=== PATIENT | female | born 1990 | race African-American/Black ===

== ENCOUNTER 2017-03-04 07:43 | Inpatient (IN) | payer OTHER ==
[~2017-03-04] VITALS: Ht 167.6 cm; Wt 60.8 kg
--- NOTE | ~2017-03-04 | DS ---
Unit #: [id number] #: [id number] Patient: OLIVIA HERNANDEZ [id number] [address] [address] [id number] I MR#: [id number] NAME: OLIVIA HERNANDEZ ROOM: [facility] Age: 26 Sex: F Admission Date: 03/04/2017 : 1990 Discharge Date: 03/07/2017 Attending Physician: Elias Robertson M.D. Primary Care Physician: No Primary Care Physician DISCHARGE SUMMARY PRINCIPAL DIAGNOSES ON DISCHARGE 1. Cannabinoid hyperemesis. 2. Bacterial vaginosis. 3. Gastritis. SECONDARY DIAGNOSES 1. Bradycardia. 2. Nausea and vomiting. 3. Marijuana and tobacco abuse. HISTORY OF PRESENT ILLNESS AND BRIEF HOSPITAL COURSE Ms. Hernandez is a 26-year-old female with no significant past medical history who presented to the emergency room because of a history of nausea, vomiting and approximately 10 bouts of nonbloody emesis within the previous 24 hours. She mentioned, also, diffuse abdominal pain, cramping in nature, only relieved by taking hot showers. In the emergency room she was noted, also, to have a blood pressure of 98/80 with a heart rate of 40. Her laboratory studies were positive for bacterial vaginosis. The patient was admitted to the hospital and started on IV fluids and antiemetics. Zofran did not seem to help, so her antiemetic regimen was changed to Phenergan. Her mental status initially was a little decreased, and she received Narcan in the emergency room. Her urine drug screen was positive for marijuana. Cardiology was consulted regarding the patient's bradycardia, and a two-D echo was obtained that showed normal valves and normal systolic and diastolic function. She was placed, for a short period of time, on a dopamine drip at a low rate, but it was rapidly discontinued. GI was consulted, and the patient underwent an EGD for her intractable nausea, vomiting and abdominal pain. It only revealed mild gastritis. Biopsies were done, but the results are pending at this time. Other negative tests included a beta HCG, and hemoglobin A1C was normal. Troponins remained negative. A CT of the head was unremarkable. Today the patient feels much better. She is able to tolerate p.o. She did receive a dose of Phenergan p.o. She was started on Flagyl for the bacterial vaginosis and was kept on PPIs during the hospitalization. The patient is considered to be stable enough to be discharged home today. Her telemetry revealed only sinus bradycardia, asymptomatic. Unit #: [id number] #: [id number] Patient: OLIVIA HERNANDEZ DISPOSITION The patient is being discharged home. CONDITION Improved. DISCHARGE DIET Regular diet, small frequent meals. ACTIVITY As tolerated. Okay to resume work in 2 days. DISCHARGE INSTRUCTIONS The patient was instructed to abstain from alcohol and marijuana. It was explained to her that the likely etiology of her symptoms is marijuana related and that it will only improve with complete abstinence. FOLLOWUP APPOINTMENTS Follow up with primary care physician in 1-2 weeks. Dictated byRachel Murray/bryanna TD: 03/08/2017 10:27 JOB #: [id number] DISCHARGE SUMMARY Page 1 of 1 X X DISCHARGE SUMMARY
--- NOTE | ~2017-03-04 | CR72 ---
[facility] A Service of [facility] & [facility] RADIOLOGY TEXT RESULTS PATIENT: OLIVIA HERNANDEZ LOCATION: [facility] [id number] : [birth year] UNIT #: [id number] AGE: [address]: Christine Dumont MD SEX: F ORDER DR: [id number] [facility] [address] [facility]. [place], [place] [address] [id number] I MR#: [id number] #: [id number] NAME: OLIVIA HERNANDEZ : 1990 SEX: F STUDY DATE/TIME: 03/04/2017 10:03 UNIT: [facility] ROOM: [id number] STUDY DESCRIPTION: CR Chest Single View Portable Attending Physician: Christine Dumont M.D. Ordering Physician: Darius Bowen M.D. Primary Care Physician: Primary Care Physician No MEDICAL IMAGING REPORT This report is preliminary unless electronic signature is present EXAM Chest portable 03/04/2017 1003 hours HISTORY 26-year-old woman with altered mental status and nausea and vomiting since yesterday. COMPARISON None. FINDINGS Portable upright chest is slightly rotated. Heart size is normal. There is mild perihilar vascular crowding but no definite acute pulmonary density or pleural effusion. There is jewelry at the right nipple. There is a linear metallic density projecting over the left chest/upper abdomen measuring 1.9 cm which could represent jewelry at the left nipple or other foreign body. IMPRESSION 1. Mild perihilar vascular crowding but no acute cardiopulmonary findings. 2. There is definite jewelry at the right nipple. There is a 1.9 cm linear metallic density projecting over the left breast/left upper quadrant of the abdomen which could represent jewelry at the left nipple or other foreign body. Correlate with physical exam. STAT * RESULT Dictated by... Marie Kiran M.D. THIS IS AN ELECTRONICALLY VERIFIED REPORT STS. [facility] A Service of [facility] & [facility] RADIOLOGY TEXT RESULTS PATIENT: OLIVIA HERNANDEZ LOCATION: [facility] [id number] : [birth year] UNIT #: [id number] AGE: [address]: Christine Dumont MD SEX: F ORDER DR: Marie Kiran M.D. at 03/04/2017 2:31 PM SHAZIA/christen TD: 03/04/2017 10:55 JOB #: [id number] MEDICAL IMAGING REPORT Page 1 of 1 COPY
--- NOTE | ~2017-03-04 | OR ---
Unit #: [id number] #: [id number] Patient: OLIVIA HERNANDEZ [id number] [address] [address] [id number] I MR#: [id number] NAME: OLIVIA HERNANDEZ ROOM: [facility] Date of Procedure: 03/05/2017 Admission Date: 03/04/2017 Surgeon: Rachid Mccoy M.D. : 1990 Attending Physician: Elias Robertson M.D. Primary Care Physician: Primary Care Physician No OPERATIVE REPORT JOB NOTE: CC: PRIMARY CARE PHYSICIAN PROCEDURE PERFORMED Esophagogastroduodenoscopy with biopsy. INDICATIONS FOR PROCEDURE Persistent nausea and vomiting, epigastric pain, undergoing evaluation with upper endoscopy. MEDICATIONS Monitored anesthesia. POSTOPERATIVE FINDINGS 1. Normal esophagus. 2. Mild gastritis, biopsies taken. 3. Normal duodenum and distal duodenum. PLAN Continue PPIs. Symptomatic treatment for now. DESCRIPTION OF PROCEDURE The patient was explained of the procedure, risks, and benefits along with the risks and benefits of anesthesia. She was brought to the endoscopy room. Propofol anesthesia was given. Bite block was placed. The scope was passed down the mouth into esophagus, stomach, duodenum, and distal duodenum. Findings as described. Biopsies taken. Gently, I pulled it out of the patient's mouth. She tolerated it well. Dictated by... Rachel Pritchett/aaron TD: 03/05/2017 20:06 JOB #: [id number] Unit #: [id number] #: [id number] Patient: OLIVIA HERNANDEZ OPERATIVE REPORT Page 1 of 1 X Rachid Mccoy MD X PROCEDURE OPERATIVE NOTE
--- NOTE | ~2017-03-04 | HP ---
Unit #: [id number] #: [id number] Patient: OLIVIA HERNANDEZ [id number] [place], [place] [address] [id number] I MR#: [id number] NAME: OLIVIA HERNANDEZ ROOM: [id number] Age: 26 Sex: F Admission Date: 03/04/2017 : 1990 Attending Physician: Christine Dumont M.D. Primary Care Physician: No Primary Care Physician HISTORY AND PHYSICAL CHIEF COMPLAINT Nausea and vomiting. HISTORY OF PRESENT ILLNESS The patient is a 26-year-old female with no significant past medical history who presented to the emergency department for evaluation of the above. The patient states that she has had a one to two day history of nausea, vomiting, and diarrhea. She states that she has had more than ten bouts of nonbloody emesis within the past 24 hours and one bout of nonbloody diarrhea. She states that she has had abdominal pain that is "everywhere." She describes it as "cramping." She denies any fever, no cough or cold symptoms. No chest pain. No palpitations. No urinary symptoms. She denies any vaginal discharge. In the emergency department initial pulse and blood pressure were 40 and 98/[address] of the head showed nothing acute. Laboratory notable for vaginosis panel being positive for BV. EKG showed sinus bradycardia with a rate of 41 BPM. She is being admitted to [facility] for evaluation and further treatment. The patient received 2 mg of Narcan in the emergency department, as well as 1 L of normal saline, 4 mg of Zofran. She took Phenergan prior to arrival. PAST MEDICAL HISTORY The patient denies hospitalization. PAST SURGICAL HISTORY Dental implants. SOCIAL HISTORY The patient lives with her mother. She smokes a pack of cigarettes daily. She denies alcohol or illicit drug use. She works as a printing sales representative. FAMILY HISTORY Notable for her mother being healthy. The patient denies any family history of diabetes. ALLERGIES No known allergies. HOME MEDICATIONS Promethazine. Unit #: [id number] #: [id number] Patient: OLIVIA HERNANDEZ REVIEW OF SYSTEMS A complete review of systems is negative except as indicated in the HPI. PHYSICAL EXAMINATION VITAL SIGNS: Temperature is 98.4, pulse 40, respirations 14, blood pressure 98/80, oxygen saturation 100% on room air. GENERAL: The patient is an -Guyanese female who is sleeping but wakes to voice. HEENT: Head is atraumatic. Mucous membranes are dry. NECK: Supple. Trachea is midline. CARDIAC: Bradycardic in the 40s. LUNGS: Clear to auscultation bilaterally with no increased work of breathing. ABDOMEN: Soft, nontender with bowel sounds present in all four quadrants. EXTREMITIES: Nontender with no pedal edema. NEUROLOGIC: The patient is sleeping but wakes to voice. She is moving all extremities. PSYCH: Mood and affect are normal. The patient is cooperative. SKIN: Skin of examined areas is warm and dry. DIAGNOSTIC STUDIES CARDIOLOGY STUDIES: EKG shows marked sinus bradycardia with a rate of 41 BPM. IMAGING STUDIES: CT of the head shows nothing acute. Chest x-ray shows mild perivascular crowding but no acute cardiopulmonary findings. LABORATORY STUDIES: Vaginosis panel is positive for BV. Comprehensive metabolic panel notable for CO2 of 20, glucose 128, lipase was 26, urine tox screen positive for marijuana. Urinalysis notable for trace leukocyte esterase, trace protein, 2+ ketone. Troponin is less than 0.05. Complete blood count is completely normal. ASSESSMENT The patient is a 26 year old female with: 1. Altered mental status. The patient was initially lethargic, now she is oriented. She did take Phenergan prior to arrival. 2. Bradycardia. The patient's heart rate continues to be in the 40s after 2 L of normal saline. 3. Nausea and vomiting. 4. Bacterial vaginosis. 5. Tobacco abuse. PLANS 1. Admit to intermediate level. 2. Advance diet to clear liquids at tolerated. 3. Normal saline at 125 mL an hear. 4. Start dopamine drip at 2 mcg/kg/minute. 5. Serial cardiac enzymes. 6. 2D echo. 7. TSH. 8. Neuro checks. 9. P.r.n. Zofran. 10. SCDs for DVT prophylaxis. 11. Flagyl for bacterial vaginosis. 12. Repeat labs in the morning. Unit #: [id number] #: [id number] Patient: MARYOLIVIA ALEXIA 13. SCDs for DVT prophylaxis. 14. Additional workup and consultants based on above. 1. Dictated by Rachel Salcedo/wu TD: 03/04/2017 12:16 JOB #: [id number] HISTORY AND PHYSICAL Page 1 of 1 X Christine Dumont MD HISTORY AND PHYSICAL
--- NOTE | ~2017-03-04 | CT71 ---
[facility] A Service of [facility] RADIOLOGY TEXT RESULTS PATIENT: OLIVIA HERNANDEZ LOCATION: [facility] [id number] : [birth year] UNIT #: [id number] AGE: [address]: Christine Dumont MD SEX: F ORDER DR: [id number] [facility] [place] [facility]. [place], [place] [address] [id number] I MR#: [id number] Acc #: [id number] NAME: OLIVAI HERNANDEZ : 1990 SEX: F STUDY DATE/TIME: 03/04/2017 9:15 UNIT: [facility] ROOM: 15002 STUDY DESCRIPTION: CT Head Wo Contrast Attending Physician: Christine Dumont M.D. Ordering Physician: Darius Bowen M.D. Primary Care Physician: Primary Care Physician No MEDICAL IMAGING REPORT This report is preliminary unless electronic signature is present EXAM Head CT without HISTORY Nausea and vomiting since yesterday with lethargy and difficulty waking up; no history of cancer. No history of trauma. TECHNIQUE Routine noncontrast head CT is reviewed. This CT exam was performed with one or more of the following radiation dose reduction techniques: automatic exposure control, adjustment of mA and/or kV according to patient size, and iterative reconstruction. COMPARISON There is no previous. FINDINGS There is no displaced calvarial fracture. The visualized mastoid air cells and paranasal sinuses are clear. There is artifact from a piercing above the left brow. There is also mild motion artifact. Allowing for this, no acute intracranial hemorrhage or extraaxial fluid collection is suspected. The basilar cisterns are patent. Pitts-white junction is relatively well-maintained. There is no intracranial mass effect. No acute cortical infarct is suspected. If there is clinical concern for acute CVA followup imaging would be indicated preferably with MRI. If there is concern for meningitis this diagnosis is best pursued with CSF sampling. IMPRESSION Allowing for some metal artifact and motion artifact essentially negative noncontrast head CT. Dictated by... [facility] A Service of [facility] RADIOLOGY TEXT RESULTS PATIENT: OLIVIA HERNANDEZ LOCATION: [facility] [id number] : [birth year] UNIT #: [id number] AGE: [address]: Christine Dumont MD SEX: F ORDER DR: Denisse Ayers M.D. THIS IS AN ELECTRONICALLY VERIFIED REPORT Denisse Ayers M.D. at 03/04/2017 5:10 PM SAC/to TD: 03/04/2017 15:11 JOB #: [id number] MEDICAL IMAGING REPORT Page 1 of 1 COPY
--- NOTE | ~2017-03-04 | EKG ---
PATIENT: OLIVIA HERNANDEZ UNIT #: [id number] Ventricular Rate: 41 BPM Atrial Rate: 41 BPM P-R Interval: 134 ms QRS Duration: 70 ms Q-T Interval: 520 ms QTC Calculation(Bezet): 429 ms P [place]: -21 degrees Calculated R [place]: 0 degrees Calculated T [place]: -12 degrees Diagnosis Line: Marked sinus bradycardia Diagnosis Line: Low voltage QRS Diagnosis Line: Nonspecific T wave abnormality Diagnosis Line: Abnormal ECG Diagnosis Line: No previous ECGs available Diagnosis Line: Confirmed by NAYA QUINTERO MD ([id number]) on Diagnosis Line: 03/05/2017 7:32:14 AM INTERPRETING MD: LEON CLARKE
--- NOTE | ~2017-03-04 | EKG ---
PATIENT: OLIVIA HERNANDEZ UNIT #: [id number] Ventricular Rate: 44 BPM Atrial Rate: 44 BPM P-R Interval: 140 ms QRS Duration: 86 ms Q-T Interval: 472 ms QTC Calculation(Bezet): 403 ms P [place]: 68 degrees Calculated R [place]: 48 degrees Calculated T [place]: 40 degrees Diagnosis Line: Marked sinus bradycardia Diagnosis Line: Abnormal ECG Diagnosis Line: When compared with ECG of 04-MAR-2017 08:42, Diagnosis Line: (unconfirmed) Diagnosis Line: Non-specific change in ST segment in Inferior Diagnosis Line: leads Diagnosis Line: Confirmed by NAYA QUINTERO MD ([id number]) on Diagnosis Line: 03/05/2017 7:34:54 AM INTERPRETING MD: LEON CLARKE
--- NOTE | ~2017-03-04 | CO ---
Unit #: [id number] #: [id number] Patient: OLIVIA HERNANDEZ [id number] [address] [place], [place] [address] [id number] I MR#: [id number] NAME: OLIVIA HERNANDEZ ROOM: [facility] Age: 26 Sex: F Admission Date: 03/04/2017 : 1990 Attending Physician: Elias Robertson M.D. Primary Care Physician: No Primary Care Physician Consultation Date: 03/04/2017 CONSULTATION REPORT REASON FOR CONSULTATION Sinus bradycardia. HISTORY OF PRESENT ILLNESS The patient is a 26-year-old female who does not have a weather reporter or a primary care provider. The patient endorses that her only past medical history is she smokes half a pack of cigarettes a day since the age of 13. Her urine drug screen was positive for marijuana. The patient reports that she has had about a 2- to 3-day history of nausea, vomiting and diarrhea. She states that she has had approximately 4 to 5 bouts of nonbloody emesis within the past 24 hours. She states that her abdomen is hurting and cramping. She endorses fever and chills but denies any shortness of breath, palpitations, dizziness or chest pain. The patient presented to the emergency department where her initial pulse was 40, and her blood pressure was 98/80. She had a CT scan of her head done, which showed nothing acute. Her laboratory panel was notable for BV. Her EKG shows sinus bradycardia with a rate of 41 beats per minute. It is reported that the patient possibly took 1 to 3 Phenergan prior to arrival in the emergency department. She was given 2 liters of normal saline and did receive 2 mg of Narcan. Again, cardiology has been consulted for this sinus bradycardia. PAST MEDICAL HISTORY 1. Tobaccoism. 2. Marijuana use. PAST SURGICAL HISTORY Dental implants. ALLERGIES No known allergies. HOME MEDICATIONS Phenergan 25 mg p.o. p.r.n. FAMILY HISTORY The patient denies any family history of coronary artery disease. SOCIAL HISTORY The patient lives with her mother and daughter. She smokes about a half a pack of cigarettes a day and has since the age of 13. She denies any alcohol or illicit drug abuse, although her urine drug screen was positive Unit #: [id number] #: [id number] Patient: OLIVIA HERNANDEZ for marijuana. 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 REVIEW OF SYSTEMS A 10-point review of systems was done and is considered, otherwise, negative unless indicated in the HPI. PHYSICAL EXAMINATION GENERAL: The patient is awake, alert, in no acute distress. VITAL SIGNS: Temperature 98.4, heart rate 40, respirations 14, blood pressure 125/69. She is oxygenating 99%. HEENT: Head is atraumatic, normocephalic. Pupils are equal, round and reactive. Extraocular movements are intact. No drainage from ears or nares. NECK: Supple. Trachea is midline. No thyromegaly or lymphadenopathy is appreciated. Normal carotid upstrokes. CHEST: The lungs are clear to auscultation bilaterally. No wheezes, rales or rhonchi. CARDIOVASCULAR: S1, S2. No murmurs, rubs or gallops appreciated. ABDOMEN: Abdomen is soft, tender. Positive bowel sounds. No hepatosplenomegaly is appreciated. SKIN: Appears to be warm, dry and intact without any unusual rashes or lesions. EXTREMITIES: No clubbing, edema or cyanosis. NEUROLOGIC: The patient is alert and oriented x4, although she is lethargic and will fall asleep, but she is appropriate. Her cranial nerves II-XII appear to be intact. DIAGNOSTIC STUDIES CARDIOVASCULAR: EKG shows sinus bradycardia with a rate of 41 beats per minute. LABORATORY: Urine drug screen was positive for marijuana. Positive for bacterial vaginosis. White blood cells 8.2, hemoglobin 14.3, hematocrit 43.3, platelets 241. Sodium 138, potassium 3.8, chloride 109, CO2 20, BUN 13, creatinine 0.8, glucose 128. TSH 0.77. Kqwrk-sd-[id number] troponin is less than 0.05. ASSESSMENT 1. Asymptomatic bradycardia. 2. Altered mental status, possibly secondary to medication versus other. 3. Bacterial vaginosis. 4. Intractable nausea, vomiting and diarrhea. 5. Tobaccoism. PLAN At this time the patient is asymptomatic with her sinus bradycardia with rates in the 40s. Her blood pressure is stable with a systolic blood pressures from 98 to 120s. Her TSH is 0.77. Will trend cardiac enzymes and check a two-D echocardiogram. Will check an EKG in the morning, and likely, the patient's dopamine drip can be stopped in the morning. Dictated by... Julita De La Torre A.P.R.N. for Kunal Ho M.D. AM/bryanna TD: 03/05/2017 07:46 Unit #: [id number] #: [id number] Patient: OLIVIA HERNANDEZ JOB #: [id number] CONSULTATION REPORT Page 1 of 1 X Julita De La Torre APRN CONSULTATION REPORT
[2017-03-04 08:56] LABS: URINE SOURCE CLEAN CATCH
[2017-03-04 09:01] LABS: BASOPHIL% 0.2 % (0-2.5); HEMATOCRIT 43.3 % (35.0-45.0); HEMOGLOBIN 14.3 gm/dL (12.0-16.0); LYMPHOCYTE# 0.8 X10e3 (1.0-3.5); LYMPHOCYTE% 10.4 % (17.0-45.0); MEAN CELL VOLUME 92.5 FL (83-96); MEAN CORPUSCULAR HEMOGLOBIN 30.6 PG (28-34); MEAN CORPUSCULAR HGB CONC 33.1 g/dL (30-36); MEAN PLATELET VOLUME 8.1 FL (6.5-11.5); MONOCYTE# 0.2 X10e3 (0-1.0); MONOCYTE% 2.7 % (3.0-12.0); NEUTROPHIL# 7.1 X10e3 (1.5-7.1); NEUTROPHIL% 86.7 % (40-75); PLATELET COUNT 241 X10e3 (140-420); RED BLOOD COUNT 4.68 X10e (3.90-5.30); RED CELL DISTRIBUTION WIDTH 13.4 % (11.0-15.5); WHITE BLOOD COUNT 8.2 X10e3 (4.0-10.5)
[2017-03-04 09:04] LABS: URINE APPEARANCE CLEAR; URINE BILIRUBIN NEG (NEG); URINE BLOOD NEG (NEG); URINE COLOR YELLOW; URINE GLUCOSE NEG (NEG); URINE KETONE 2+ (NEG); URINE LEUKOCYTE ESTERASE TRACE (NEG); URINE NITRATE NEG (NEG); URINE PH 7.5 (5-8); URINE PROTEIN TRACE (NEG); URINE SPECIFIC GRAVITY 1.022 (1.003-1.035); URINE UROBILINOGEN 0.2 MG/DL (NEG)
[2017-03-04 09:05] LABS: URBCS1 AUWI 0-2 /[HPF] (0-2); URINE BACTERIA AUWI NEG (NEGATIVE); URINE SQUAMOUS EPITHELIAL CELL MOD /[HPF]; UWBCS1 AUWI 0-2 (0-5)
[2017-03-04 09:08] LABS: DIFF IND NO
[2017-03-04 09:15] LABS: AMPHETAMINE NEG (NEG); BARBITURATES NEG (NEG); BENZODIAZEPINES NEG (NEG); COCAINE NEG (NEG); MARIJUANA POS (NEG); OPIATES NEG (NEG); TRICYCLIC ANTIDEPRESSANTS NEG (NEG); U METHADONE NEG (NEG)
[2017-03-04 09:16] LABS: CULTURE INDICATED? NO
[2017-03-04 09:18] LABS: POC - CKMB <1.0 ng/mL (0.0-7.9); POC - TROPONIN <0.05 ng/mL (<=0.05)
[2017-03-04 09:33] LABS: ALBUMIN SERUM 4.6 g/dL (3.5-5.0); BILIRUBIN, DIRECT 0.2 mg/dL (0.0-0.2); BILIRUBIN,INDIRECT 0.8 mg/dL (0.0-0.9); BUN/CREATININE RATIO 16.25; CALCIUM SERUM 9.4 mg/dL (8.4-10.2); CREATININE SERUM 0.8 mg/dL (0.6-1.4); POTASSIUM 3.8 mmol/L (3.5-5.1); PROTEIN TOTAL SERUM 7.4 g/dL (6.0-8.3)
[2017-03-04] MEDS ORDERED: PHENERGAN SUPP25 MG PR (10:18)
[2017-03-04] MEDS ORDERED: PATIENT'S PHARMACY (10:18)
[2017-03-04 16:22] LABS: %MB 1.8 % (0.0-4.0)
[2017-03-04 22:05] LABS: %MB 1.6 % (0.0-4.0); MB 1.9 ng/ml
[2017-03-05 05:35] LABS: HEMATOCRIT 43.8 % (35.0-45.0); HEMOGLOBIN 14.4 gm/dL (12.0-16.0); MEAN CELL VOLUME 92.8 FL (83-96); MEAN CORPUSCULAR HEMOGLOBIN 30.5 PG (28-34); MEAN CORPUSCULAR HGB CONC 32.8 g/dL (30-36); MEAN PLATELET VOLUME 8.4 FL (6.5-11.5); RED BLOOD COUNT 4.72 X10e (3.90-5.30); RED CELL DISTRIBUTION WIDTH 13.4 % (11.0-15.5)
[2017-03-05 05:37] LABS: WHITE BLOOD COUNT 13.6 X10e3 (4.0-10.5)
[2017-03-05 05:57] LABS: ALBUMIN SERUM 4.5 g/dL (3.5-5.0); BILIRUBIN,TOTAL 0.7 mg/dL (0.2-2.0); BUN/CREATININE RATIO 11.25; CALCIUM SERUM 9.3 mg/dL (8.4-10.2); CREATININE SERUM 0.8 mg/dL (0.6-1.4); POTASSIUM 3.5 mmol/L (3.5-5.1); PROTEIN TOTAL SERUM 7.4 g/dL (6.0-8.3)
[2017-03-06 09:04] LABS: HEMATOCRIT 45.5 % (35.0-45.0); MEAN CELL VOLUME 93.7 FL (83-96); MEAN CORPUSCULAR HEMOGLOBIN 30.9 PG (28-34); MEAN CORPUSCULAR HGB CONC 32.9 g/dL (30-36); MEAN PLATELET VOLUME 8.4 FL (6.5-11.5); RED BLOOD COUNT 4.86 X10e (3.90-5.30); RED CELL DISTRIBUTION WIDTH 13.3 % (11.0-15.5); WHITE BLOOD COUNT 9.8 X10e3 (4.0-10.5)
[2017-03-06 10:01] LABS: ALBUMIN SERUM 4.4 g/dL (3.5-5.0); BILIRUBIN,TOTAL 0.8 mg/dL (0.2-2.0); BUN/CREATININE RATIO 12.22; CALCIUM SERUM 9.6 mg/dL (8.4-10.2); CREATININE SERUM 0.9 mg/dL (0.6-1.4); GLOM FILT RATE Estimated 102.3 mL/min (>60); POTASSIUM 3.5 mmol/L (3.5-5.1); PROTEIN TOTAL SERUM 7.2 g/dL (6.0-8.3)
[2017-03-07 06:57] LABS: CALCIUM SERUM 8.8 mg/dL (8.4-10.2); CREATININE SERUM 0.8 mg/dL (0.6-1.4); MAGNESIUM 1.9 mg/dL (1.6-3.0); POTASSIUM 3.2 mmol/L (3.5-5.1)
[2017-03-07 09:47] LABS: CHLAMYDIA TRACH Not Detected (Not Detected); N GONOR Not Detected (Not Detected)
[2017-03-07] MEDS ORDERED: FLAGYL PO (19:22)
[2017-03-07] MEDS ORDERED: OMEPRAZOLE40 M1 PO (19:22)
== END 2017-03-07 19:38 | disposition home or self-care (01) | DRG 392 ==
LOC: CED 07:43 → CEDOF 10:20 → C3A PCU 10:20 → CED 10:47 → CEDOF 10:47 → C3A PCU 15:14 → CEDOF 15:14 → C3A PCU 16:39
PROVIDERS: Family Medicine; Internal Medicine; Physician Assistant
PROC: B24BYZZ Ultrasonography of Heart with Aorta using Other Contrast (ICD-10-PCS; 2017-03-04)
PROC: 0DB68ZX Excision of Stomach, Via Natural or Artificial Opening Endoscopic, Diagnostic (ICD-10-PCS; principal; 2017-03-05 17:21)
DX: K29.70 Gastritis, unspecified, without bleeding (principal); R00.1 Bradycardia, unspecified; N76.0 Acute vaginitis; F17.210 Nicotine dependence, cigarettes, uncomplicated; F12.10 Cannabis abuse, uncomplicated; R11.10 Vomiting, unspecified; E87.6 Hypokalemia; Z71.51 Drug abuse counseling and surveillance of drug abuser
CPT/HCPCS: 36415; 51701; 70450; 71010; 80048; 80053; 80076; 80307; 81003; 82550; 82553; 83036; 83690; 83735; 84443; 84484; 84703; 85025; 85027; 87040; 87491; 87591; 87808; 87905; 88305; 88312; 93005; 93306; 94760; 96374; 96375; 99285; C9113; J1265; J2250; J2405; J2550